=== PATIENT | male | born 1945 | race Caucasian/White ===

== ENCOUNTER 2021-09-05 21:05 | Emergency (ER) | payer MEDICARE, BC ==
[~2021-09-05] VITALS: Ht 182.9 cm; Wt 130.2 kg
[~2021-09-05 21:05] MED LIST: BACTRIM DS1 TAB PO; CEPHALEXIN500 MG PO; DETROL LA4 MG PO; DILAUDID 2MG2 MG/TA1 PO; EQ OMEPRAZOLE20 MG PO; FLOMAX0.4 M1 PO; HYDROCODONE/ACE1 TA7 PO; LORTAB 5/3255 MG PO; OMEPRAZOLE20 M1 PO; RESTORIL15 MG PO; SEPTRA DS PO; TAMSULOSIN HCL0.4 MG PO; VESICARE10 MG PO; ZITHROMAX250 MG PO; ZPAK PO
[2021-09-05] MEDS ORDERED: TOPROL XL25 M1 PO (21:47)
[2021-09-05] MEDS ORDERED: WARFARIN5 MG PO (21:48)
[2021-09-05 21:53] LABS: HEMATOCRIT 45.2 % (39.0-50.0); HEMOGLOBIN 14.4 g/dl (14.0-18.0); IMMATURE GRANULOCYTES 0.1 % (0.0-5.0); MEAN CELL VOLUME 94.8 fL CALC (80.0-100.0); MEAN CORPUSCULAR HGB 30.2 pG CALC (26.0-32.0); MEAN CORPUSCULAR HGB CONC 31.9 g/dL CAL (32.0-36.0); NEUT# 6.51 thou/uL (1.82-7.42); RED BLOOD COUNT 4.77 mill/uL (4.70-6.10); RED CELL DISTRI WIDTH 14.7 % (11.5-15.5)
[2021-09-05 22:11] LABS: URINE BILIRUBIN - DIPSTICK NEGATIVE (NEGATIVE); URINE BLOOD DIPSTICK TRACE-INTACT (NEGATIVE); URINE COLOR YELLOW; URINE GLUCOSE - DIPSTICK NEGATIVE (NEGATIVE); URINE KETONE NEGATIVE (NEGATIVE); URINE LEUK ESTERASE NEGATIVE (NEGATIVE); URINE PH 5.5 (4.5-8.0); URINE PROTEIN - DIPSTICK NEGATIVE (NEG-TRACE)
[2021-09-05 22:15] LABS: URINE NITRITE - DIPSTICK NEGATIVE (Negative)
[2021-09-05 22:25] LABS: ALBUMIN 3.9 g/dL (3.2-5.0); ALKALINE PHOSPHATASE 86 u/l (38-126); ANION GAP 14 (6-22 (CALC)); BILIRUBIN, TOTAL 0.7 mg/dL (0.0-1.4); BUN 17 mg/dL (8-23); BUN/CREATININE RATIO 14 (12-20 (CALC)); CARBON DIOXIDE 26 mmol/l (22-30); CHLORIDE 104 mmol/l (95-108); CREATININE 1.3 mg/dL (0.7-1.3); GFR 54 ML/MIN (>=60 (CALC)); GFR FOR AFR.AMER. > 60 ML/MIN (>=60 (CALC)); SGOT/AST 23 u/l (19-48); SODIUM 140 mmol/l (137-146); TOTAL PROTEIN 7.9 g/dL (6.3-8.2)
[2021-09-05 22:29] LABS: INTERNATIONAL NORMALIZED RATIO 2.7 RATIO (0.7-1.3); PROTHROMBIN TIME 26.4 SECONDS (9.0-12.5)
[2021-09-05 22:37] LABS: MYOGLOBIN 103 ng/mL (0 - 121)
[2021-09-05 23:20] VITALS: BP 121/58
== END 2021-09-05 23:20 | disposition home or self-care (01) ==
LOC: ED 21:05
PROVIDERS: Family Medicine
DX: I10 Essential (primary) hypertension (principal); Z79.01 Long term (current) use of anticoagulants